=== PATIENT | male | born 1975 | race Caucasian/White ===

== ENCOUNTER → 2017-11-17 | Outpatient (CLI) | payer BC ==
--- NOTE | 2017-11-18 09:28 | US ---
EXAMINATION TYPE: US kidneys/renal and bladder DATE OF EXAM: 11/17/2017 COMPARISON: 05/21/2017 CLINICAL HISTORY: N28.89 Disorder of the kidney and ureter. History of renal cyst EXAM MEASUREMENTS: Right Kidney: 9.1 x 4.3 x 4.4 cm Left Kidney: 10.1 x 5.2 x 4.5 cm Technical limitations due to large amount of overlying bowel content Right Kidney: no evidence of hydronephrosis or mass Left Kidney: cystic area lower pole = 1.1 x 1.0 x 1.2cm, cystic area (unable to clear out low level e choes) lower anterior = 0.9 x 0.8 x 1.2cm Bladder: appears wnl Bilateral Jets seen: yes There is no evidence for hydronephrosis at this point in time. No nephrolithiasis is seen. No diane s are identified. The urinary bladder is anechoic. Bilateral ureteral jets are seen. IMPRESSION: 1. No interval growth of the left lower pole complex cystic lesion in comparison to the exam of 2014. Therefore this is highly favored to be benign. 2. Additional 1.2 cm left lower pole renal lesion is demonstrated to the cystic on the exam of 017 and now appears hypoechoic. This may represent a component of internal hemorrhage or proteinaceou s debris that has occurred in the interim.
== END | disposition home or self-care (01) ==
LOC: RADUSWWP 16:26
PROVIDERS: ATTEND Family Medicine
DX: N28.1 Cyst of kidney, acquired (principal)
CPT/HCPCS: 76770

== ENCOUNTER 2018-11-04 18:38 | Emergency (ER) | payer BC ==
[2018-11-04 18:42] VITALS: RESP 18
--- NOTE | 2018-11-04 18:46 | ED ---
Abdominal Pain HPI - General Chief Complaint: Abdominal Pain Stated Complaint: lower right abdominal pain Time Seen by Provider: 11/04/18 18:42 Source: patient Mode of arrival: ambulatory Limitations: no limitations - History of Present Illness Initial Comments: 43-year-old male presenting today for chief complaint of right lower abdominal pain. Patient has history of IBS and cyclic vomiting. Patient states he has had issues with either diagnoses within the past 3 years. Patient states that about 3 days ago he had episode of vomiting as well as diarrhea. He denies any additional episodes since. Patient states that he has had significant tender in his right lower quadrant that increases with palpation. He states he did have a previous hernia in this area. He states it has been repaired. Patient denies any nausea chest pain dyspnea disposition melena hematochezia. Patient states the pain increases walking or movements. Patient states he does have pain radiating from the back towards the right-sided abdomen and has had previous kidney stones. Patient denies dysuria urgency frequency or hematuria. Denies testicular pain. Patient appears well upon arrival. Vital signs within acceptable limits. No signs of acute distress. - Related Data Home Medications Medication Instructions Recorded Confirmed Albuterol Inhaler [Ventolin Hfa 2 puff INHALATION RT-Q4H PRN 05/21/17 11/04/18 Inhaler] Ondansetron [Zofran ODT] 8 mg PO Q8H PRN 05/21/17 11/04/18 Phenobarb/Hyoscy/Atropine/Scop 16.2 mg PO TID 05/21/17 11/04/18 [] Anastrozole [Arimidex] 1 mg PO MOWEFR 11/04/18 11/04/18 HYDROcodone/APAP 10-325MG [[place] 1 tab PO Q6HR PRN 11/04/18 11/04/18 10-325] Allergies Allergy/AdvReac Type Severity Reaction Status Date / Time No Known Allergies Allergy Verified 11/04/18 19:00 Review of Systems ROS Statement: Those systems with pertinent positive or pertinent negative responses have been documented in the HPI. ROS Other: All systems not noted in ROS Statement are negative. Past Medical History Past Medical History: Fibromyalgia Additional Past Medical History / Comment(s): IBS, vomiting syndrome, chronic pain, DJD, arthritis. History of Any Multi-Drug Resistant Organisms: None Reported Past Surgical History: Hernia Repair Past Psychological History: No Psychological Hx Reported Smoking Status: Current every day smoker Past Alcohol Use History: None Reported Past Drug Use History: Marijuana General Exam - General Exam Comments Initial Comments: General: The patient is awake and alert, in no distress, and does not appear acutely ill. Eye: +3 mm pupils are equal, round and reactive to light, extra-ocular movements are intact. No nystagmus. There is normal conjunctiva bilaterally. No signs of icterus. Ears, nose, mouth and throat: There are moist mucous membranes and no oral lesions. Neck: The neck is supple, there is no tenderness or JVD. Cardiovascular: There is a regular rate and rhythm. No murmur, rub or gallop is appreciated. Respiratory: Lungs are clear to auscultation, respirations are non-labored, breath sounds are equal. No wheezes, stridor, rales, or rhonchi. Gastrointestinal: Soft, non-distended, abdomen without masses or organomegaly noted. Abdomen is tender to the right lower quadrant no rigidity. There is no rebound or guarding present. No CVA tenderness. Bowel sounds are unremarkable. Musculoskeletal: Normal ROM, no tenderness. Strength 5/5. Sensation intact. Radial pulses equal bilaterally 2+. Neurological: A&O x 3. CN II-XII intact, There are no obvious motor or sensory deficits. Coordination appears grossly intact. Speech is normal. Skin: Skin is warm and dry and no rashes or lesions are noted. Psychiatric: Cooperative, appropriate mood & affect, normal judgment. Limitations: no limitations Course Vital Signs 11/04/18 11/04/18 18:40 20:15 Temperature 97.4 F L 97.9 F Pulse Rate 90 86 Respiratory 18 18 Rate Blood Pressure 119/78 102/74 O2 Sat by Pulse 100 97 Oximetry Medical Decision Making - Medical Decision Making Well-appearing 43-year-old male presents today for chief complaint of right lower abdominal pain. No hernia present on examination. No masses. Patient does have moderate tenderness in the right lower quadrant. No rigidity, guarding or peritoneal irritation signs. CT was negative for acute process. Laboratory studies unremarkable. Urinalysis unremarkable. I did discuss these findings with patient, patient states he has had improvement of pain. Patient has had recent vomiting diarrhea most likely viral in nature. Differential diagnosis of right lower quadrant pain includes underlying mesenteric adenitis. Return parameters were discussed at length with patient who verbalized understanding. pt provided pain medication in the ER. Patient appears well, comfortable. Pt will be discharged with outpatient primary care f/u in 2-3 days. Patient is agreeable plan as well as R return parameters SINCE were answered to the best of my ability. I did discuss the case the time provider Dr. Leon who is agreeable patient plan of care as well as discharged today. - Lab Data Result diagrams: 11/04/18 19:10 11/04/18 19:10 Lab Results 11/04/18 11/04/18 11/04/18 Range/Units 19:10 19:10 19:10 WBC 11.7 H (3.8-10.6) k/uL RBC 4.78 (4.30-5.90) m/uL Hgb 15.4 (13.0-17.5) gm/dL Hct 47.5 (39.0-53.0) % MCV 99.4 (80.0-100.0) fL MCH 32.2 (25.0-35.0) pg MCHC 32.4 (31.0-37.0) g/dL RDW 12.1 (11.5-15.5) % Plt Count 312 (150-450) k/uL Neutrophils % 71 % Lymphocytes % 21 % Monocytes % 5 % Eosinophils % 1 % Basophils % 1 % Neutrophils # 8.3 H (1.3-7.7) k/uL Lymphocytes # 2.4 (1.0-4.8) k/uL Monocytes # 0.6 (0-1.0) k/uL Eosinophils # 0.1 (0-0.7) k/uL Basophils # 0.1 (0-0.2) k/uL Sodium 137 (137-145) mmol/L Potassium 4.4 (3.5-5.1) mmol/L Chloride 99 (98-107) mmol/L Carbon Dioxide 30 (22-30) mmol/L Anion Gap 8 mmol/L BUN 17 (9-20) mg/dL Creatinine 0.84 (0.66-1.25) mg/dL Est GFR (CKD-EPI)AfAm >90 (>60 ml/min/1.73 sqM) Est GFR (CKD-EPI)NonAf >90 (>60 ml/min/1.73 sqM) Glucose 91 (74-99) mg/dL Calcium 9.6 (8.4-10.2) mg/dL Total Bilirubin 0.7 (0.2-1.3) mg/dL AST 17 (17-59) U/L ALT 20 L (21-72) U/L Alkaline Phosphatase 85 (38-126) U/L Total Protein 7.2 (6.3-8.2) g/dL Albumin 4.4 (3.5-5.0) g/dL Lipase 64 (23-300) U/L Urine Color Yellow Urine Appearance Clear (Clear) Urine pH 6.0 (5.0-8.0) Ur Specific [place] 1.030 (1.001-1.035) Urine Protein 1+ H (Negative) Urine Glucose (UA) Negative (Negative) Urine Ketones Negative (Negative) Urine Blood Negative (Negative) Urine Nitrite Negative (Negative) Urine Bilirubin Negative (Negative) Urine Urobilinogen 3.0 (<2.0) mg/dL Ur Leukocyte Esterase Trace H (Negative) Urine RBC 3 (0-5) /hpf Urine WBC 4 (0-5) /hpf Amorphous Sediment Rare H (None) /hpf Urine Bacteria Rare H (None) /hpf Urine Mucus Moderate H (None) /hpf Disposition Clinical Impression: Abdominal pain Disposition: HOME SELF-CARE Condition: Good Instructions (If sedation given, give patient instructions): Abdominal Pain (ED) Additional Instructions: Please use medication as discussed. Please follow-up with family doctor in the next 2 days. Please return to emergency room if the symptoms increase or worsen or for any other concerns. Is patient prescribed a controlled substance at d/c from ED?: No Referrals: Braden Flores MD [Primary Care Provider] - 1-2 days Time of Disposition: 19:59
[2018-11-04 19:41] LABS: Basophils # (A) 0.1 k/uL (0-0.2); Basophils % (A) 1 %; Eosinophils # (A) 0.1 k/uL (0-0.7); Eosinophils % (A) 1 %; HCT 47.5 % (39.0-53.0); HGB 15.4 gm/dL (13.0-17.5); Lymphocytes # (A) 2.4 k/uL (1.0-4.8); Lymphocytes % (A) 21 %; MCH 32.2 pg (25.0-35.0); MCHC 32.4 g/dL (31.0-37.0); MCV 99.4 fL (80.0-100.0); Mean Platelet Volume 6.6; Monocytes # (A) 0.6 k/uL (0-1.0); Monocytes % (A) 5 %; Neutrophils # (A) 8.3 k/uL (1.3-7.7); Neutrophils % (A) 71 %; Platelet Count 312 k/uL (150-450); RBC 4.78 m/uL (4.30-5.90); RDW 12.1 % (11.5-15.5); WBC 11.7 k/uL (3.8-10.6)
--- NOTE | 2018-11-04 19:48 | CT ---
EXAMINATION TYPE: CT abdomen pelvis w con DATE OF EXAM: 11/04/2018 COMPARISON: 05/21/2017 HISTORY: RLQ pain, hx of IBS CT DLP: 737.1 mGycm CONTRAST: CT scan of the abdomen and pelvis is performed without Oral Contrast and with IV Contrast, patient in jected with 100 mL of Isovue 300. FINDINGS: LUNG BASES-: No visible nodule. No infiltrate. LIVER/GB: No calcified gallstones. No space occupying hepatic lesion. Biliary tree is of normal ca liber. PANCREAS: No inflammation. No distinct mass. SPLEEN: No splenic enlargement. No lesion seen. ADRENALS: No nodule. No thickening. KIDNEYS/BLADDER: No hydronephrosis. No nephrolithiasis. Subcentimeter nonspecific cystic lesion upp er pole left kidney. Additional smaller cyst lower pole left kidney. Urinary bladder grossly unremark able. BOWEL: Normal appendix. Normal bowel caliber. Small bowel wall thickening may reflect enteritis. Cor relate clinically. No evidence for free air or abscess. GENITAL ORGANS: No gross abnormality. LYMPH NODES: No greater than 1cm abdominal or pelvic lymph nodes are appreciated. AORTA: No significant abnormality. OSSEOUS STRUCTURES: No significant abnormality is seen. OTHER: No significant additional abnormality is seen. IMPRESSION: 1. Small bowel wall thickening may reflect enteritis. Correlate clinically.
[2018-11-04 19:51] LABS: Albumin 4.4 g/dL (3.5-5.0); Glucose 91 mg/dL (74-99); Total Protein 7.2 g/dL (6.3-8.2)
[2018-11-04 19:52] LABS: ALT 20 U/L (21-72); AST 17 U/L (17-59); Alkaline Phosphatase 85 U/L (38-126); Anion Gap 8 mmol/L; Blood Urea Nitrogen 17 mg/dL (9-20); Calcium 9.6 mg/dL (8.4-10.2); Carbon Dioxide 30 mmol/L (22-30); Chloride 99 mmol/L (98-107); Lipase 64 U/L (23-300); Potassium 4.4 mmol/L (3.5-5.1); Sodium 137 mmol/L (137-145); Total Bilirubin 0.7 mg/dL (0.2-1.3)
[2018-11-04 19:57] LABS: Amorphous Sediment,Urine Rare /hpf; Appearance,Urine Clear (Clear); Bacteria,Urine Rare /hpf; Bilirubin,Urine Negative (Negative); Blood,Urine Negative (Negative); Color,Urine Yellow; Glucose,Urine (UA) Negative (Negative); Ketones,Urine Negative (Negative); Leukocyte Esterase,Urine Trace (Negative); Mucus,Urine Moderate /hpf; Nitrite,Urine Negative (Negative); Protein,Urine 1+ (Negative); RBC,Urine 3 /hpf (0-5); WBC,Urine 4 /hpf (0-5)
[2018-11-04] MEDS ORDERED: Acetaminophen-Codeine 300-30mg TAB PO STA (20:07)
[2018-11-04 20:17] VITALS: BP 102/74; PULSE 86; TEMP 97.9
== END 2018-11-04 20:17 | disposition home or self-care (01) ==
LOC: EC 18:38
DX: R10.31 Right lower quadrant pain (principal); M54.9 Dorsalgia, unspecified; M19.90 Unspecified osteoarthritis, unspecified site; F17.200 Nicotine dependence, unspecified, uncomplicated; Z79.891 Long term (current) use of opiate analgesic; Z79.899 Other long term (current) drug therapy; Z87.19 Personal history of other diseases of the digestive system; Z87.442 Personal history of urinary calculi; Z98.890 Other specified postprocedural states
CPT/HCPCS: 36415; 80053; 83690; 85025; 81001; 74177; 99284; Q9967

== ENCOUNTER → 2018-11-30 | Outpatient (CLI) | payer BC ==
--- NOTE | 2018-11-30 09:14 | MR ---
EXAMINATION TYPE: MR lumbar spine wo con DATE OF EXAM: 11/30/2018 COMPARISON: MRI lumbar spine May 13, 2011. CT abdomen and pelvis November 04, 2018. HISTORY: Low back pain. Pain for years increasing in severity over last 6 weeks going into right butt ocks and calf per patient. TECHNIQUE: Multiplanar, multisequence imaging of the lumbar spine is performed without IV contrast. FINDINGS: Sagittal images of the lumbar spine show vertebral body heights and alignment to appear sat isfactory. Multilevel disc desiccation is seen but disc space heights are fairly well-maintained. No large posterior disc herniations are present on sagittal images. The conus medullaris is normal in po sition and signal ending mid L1 level. The bone marrow signal intensity is within normal limits. Axial images show the T12-L1 and L1-L2 levels to remain within normal limits. Axial images at L2-L3 level show mild broad disc bulge minimally effacing anterior thecal sac, bilate ral neural foramina are patent. Axial images at the L3-L4 level are felt to remain within normal limits. Axial images at the L4-L5 level show central disc protrusion with increased posterior signal consiste nt with annular tear redemonstrated. There is mild facet degenerative change seen bilaterally. There is minimal effacement of the anterior thecal sac. Bilateral neural foramina are patent. Axial images at the L5-S1 level show mild facet degenerative changes bilaterally. There is tiny left paracentral disc protrusion axial image 3 but no significant spinal canal effacement. Bilateral neura l foramina are patent. No suspicious incidental retroperitoneal findings. IMPRESSION: Some multilevel mild degenerative changes L2-L3, L4-L5, and L5-S1 levels as detailed abov e. No significant progression from 2011 MRI. No suspicious new finding seen to account for patient's right-sided radiculopathy type symptoms.
== END | disposition home or self-care (01) ==
LOC: RADMRIMAIN 08:26
PROVIDERS: ATTEND Physical Medicine & Rehabilitation
DX: M51.27 Other intervertebral disc displacement, lumbosacral region (principal); M51.26 Other intervertebral disc displacement, lumbar region; M47.816 Spondylosis without myelopathy or radiculopathy, lumbar region; M47.817 Spondylosis without myelopathy or radiculopathy, lumbosacral region
CPT/HCPCS: 72148

== ENCOUNTER → 2019-01-05 | Outpatient (CLI) | payer BC ==
[2019-01-05 13:44] VITALS: BP 105/72; PULSE 102; RESP 16
--- NOTE | 2019-01-05 14:24 | P.PAINCN ---
History of Present Illness - Reason for Consult Consult date: 01/05/19 - History of Present Illness This is 43 years old male with a chronic history of severe low back pain, started almost 15 years ago, he denies any initiating event, and he was treated with the interventional pain therapy and he had radiofrequency ablation of the medial branch done 10 years ago, later on he was on pain medication, and he was doing fairly well until recently when he started having severe low back pain with radiation to the right lower extremity, associated with numbness and tingling sensation, patient denies any initiating event, he had no history of trauma no history of heavy lifting, he had no history of falling, he reported that the intensity of the pain 8/10 and increases with any activity walking and bending and leaning forward all these factors aggravate his pain, he denies any fever or night sweats, he denies any change in the bowel movement or urination, and he reported that the intensity of the pain interferes with her quality of life, is currently on MSIR 30 mg every 6 hours he denies any side effect of the medication and he reports he gets some benefit from the pain medication. Past Medical History Past Medical History: Asthma, Fibromyalgia, GERD/Reflux, Osteoarthritis (OA) Additional Past Medical History / Comment(s): IBS, CVS(vomiting syndrome), DJD, migraines, hiatal hernia, hx "high estrogen" History of Any Multi-Drug Resistant Organisms: None Reported Past Surgical History: Hernia Repair Additional Past Surgical History / Comment(s): urinary stent for kidney stone/later removed Past Anesthesia/Blood Transfusion Reactions: No Reported Reaction Smoking Status: Current every day smoker - Past Family History Mother Family Medical History: No Reported History Medications and Allergies Home Medications Medication Instructions Recorded Confirmed Type Albuterol Inhaler [Ventolin Hfa 2 puff INHALATION Q4HR PRN 05/21/17 01/03/19 History Inhaler] Ondansetron [Zofran ODT] 8 mg PO Q8H PRN 05/21/17 01/03/19 History Phenobarb/Hyoscy/Atropine/Scop 16.2 mg PO TID PRN 05/21/17 01/03/19 History [] Anastrozole [Arimidex] 1 mg PO MOWEFR 11/04/18 01/03/19 History Morphine Sulfate Ir [MSIR] 30 mg PO QID 01/03/19 01/05/19 History Allergies Allergy/AdvReac Type Severity Reaction Status Date / Time No Known Allergies Allergy Verified 01/03/19 15:09 Physical Exam Vitals: Vital Signs Pulse Resp BP 01/05/19 13:39 102 H 16 105/72 Social history : not smoker , NO ETOH . Family history : Review of Systems : - Constitutional : no chills , no fever , no night sweats , - Ears : no ear discharge , no change in hearing -Nose, Mouth ,Throat ; no bleeding gums, no sore throat , no epista xis , -Cardiovascular : Denies chest pain, , no orthopnea , no palpitation -Respiratory : Denies cough , no dyspnea , no hemoptysis -Gastrointestinal : no change in bowel habits , no coffee-ground emesis . -Genitourinary : No hematuria , no discharge , no incontinence, -Musculoskeletal : No gait dysfunction , report low back pain with radiation to the right lower extremity with numbness and tingling sensation , - Neurological : no ataxia , no tremor , no sezure , -Psychatric : no suicidal ideation no hallucination - Endocrine : no cold intolerence , no polyuria , no polydypsia , -Hematologic : no easy bleeding , no easy brusing , -Allergic / immm : no angioedema , no wheezing ,no allergic rhinitis -Integumentary : no brttle nails , no change hair / nails , no foot/leg ulcers . Physical Examinations : -Constitutional : Cooperative , not in acute distress . -HEENT : nech ; supple , no Lymphadenopathy , no Thyromegaly , :eyes : no icterus, no photophobia . ENT : normal oropharynx , no Thrush - Respiratory : Chest clear to auscultations Bilaterally , no wheezing . - Cardiovascular : regular rate and rhythem , S1 , S2 , no S3 , no S4. - Gastrointestina l: abdomen soft no tenderness , no organomegally . - Genitourinary : Defferred . -Integumentary : No cellulitis , no ulcers , normal skin turgor , no cyanotic . - neurologic : Cranial nerve II to XII intact , no focal neurological deffecit -psychatric : alert , oriented X 3 , appropriate affect , intact judgment and insight . -Lymphatic : no Lymphadenopathy. - musculoskeltal: Antalgic gait . Lumber spine moter stegnth lower extremities ,thigh and legs 5/5 Right side , 5/5 Left side deep tendon reflexes : normal Knee Jerk , normal ankle Jerk Dysesthesia on the right lower extremity positive lumber facet Loading Test Range of motion of the lumbar spine Flexion 30 degrees, extension 10 degrees strait leg raising test , positive at 30 degree on the right side and is negative on the left side Fabere test positive RT and negative LT . Severe tenderness over the sacroiliac joint on the right side, and on the left side Results Comments: MRI of the lumbar spine done at [facility] L2-3 disc bulging at L4 5 disc protrusion with annular tear and facet degeneration, L5-S1 facet de generation Assessment and Plan Plan: Assessment and plan= lumbar radiculopathy. Lumbar spondylosis with lumbar facet arthropathy without myelopathy. Patient could benefit from right-sided transforaminal epidural steroid injection at L4-L5/L5-S1 under fluoroscopy guidance, Procedure risk and benefits and alternatives discussed with the patient he agreed with proceeding Time with Patient: Greater than 30 PQRS Measure Charge Sheet Measure #130: Documentation of Current Meds in Medical Chart: Patient's medications documented in chart Measure #226: Tobacco Use: Screen & Cessation Intervention: Pt not a tobacco user Measure #111: Pneumonia Vaccination: Pneumococcal vaccine NOT administered or previously given Measure #47: Advance Care Plan: Advance care planning discussed & documented, pt chose/unable to give Measure #412: Opioid Treatment Agreement: No documentation of signed opioid treatment agreement Measure #408: Opioid Therapy Follow-up Evaluation: Patient had NO f/u eval minimum every 3 months during opioid therapy Measure #317: Preventitive Care & Scrn High Bld Press & F/U: Normal blood pressure, f/u not required Measure #128: Body Mass Index (BMI) Screening & Follow-up: BMI documented within normal parameters Measure #131: Pain Assessment & Follow-up: Pain positive & plan documented, Follow-up scheduled Measure #431: Unhealthy Alcohol Use Preventative Care & Scrn: Patient not identified as an unhealthy alcohol user PQRS Narrative: Smoking Status Current every day smoker Blood Pressure 105/72 Pain Intensity [Right Calf] 8 Pain Intensity [Right Buttock] 8 Scale Used Numeric (1 - 10) Hx Alcohol Use (MH) Yes Home Medications: Ambulatory Orders Albuterol Inhaler [Ventolin Hfa Inhaler] 2 puff INHALATION Q4HR PRN 05/21/17 Ondansetron [Zofran ODT] 8 mg PO Q8H PRN 05/21/17 Phenobarb/Hyoscy/Atropine/Scop [] 16.2 mg PO TID PRN 05/21/17 Anastrozole [Arimidex] 1 mg PO MOWEFR 11/04/18 Morphine Sulfate Ir [MSIR] 30 mg PO QID 01/03/19
== END | disposition home or self-care (01) ==
LOC: PNWHC3 13:11
PROVIDERS: ATTEND Specialist
DX: M47.26 Other spondylosis with radiculopathy, lumbar region (principal); M46.96 Unspecified inflammatory spondylopathy, lumbar region; M19.90 Unspecified osteoarthritis, unspecified site; G43.909 Migraine, unspecified, not intractable, without status migrainosus; F17.200 Nicotine dependence, unspecified, uncomplicated; Z79.890 Hormone replacement therapy; Z79.891 Long term (current) use of opiate analgesic
CPT/HCPCS: 99211

== ENCOUNTER 2019-01-18 09:30 | Day surgery (SDC) | payer BC ==
[2019-01-17 12:07] VITALS: BMI 23.6
[~2019-01-18 09:30] MED LIST: LACTATED RINGERS 1,000 ML IV SCH
[2019-01-18 09:56] VITALS: TEMP 97.3
[2019-01-18] MEDS ORDERED: LIDOCAINE 1% 20 ML VIAL (10MG/ML) FOR IV START INTRADERMA ONE (09:59)
[2019-01-18] MEDS ORDERED: IV FLUID CONTINUATION 1,000 ML IV ONE (11:05)
[2019-01-18 11:22] VITALS: BP 115/67; PULSE 67; RESP 18
--- NOTE | 2019-01-18 11:26 | FL ---
EXAMINATION TYPE: FL guided pain mgmt statistic DATE OF EXAM: 01/18/2019 COMPARISON: NONE HISTORY: Back pain TECHNIQUE: Fluoroscopy. FINDINGS: Fluoroscopic guidance was provided during procedure performed by Dr. Tracy. A total of 7 se conds of fluoroscopic time was utilized during the procedure and 4 spot images was acquired demonstra ting localization of the lumbar spine. IMPRESSION: As Above.
--- NOTE | 2019-01-18 16:39 | P.PCN ---
Date of Procedure: 01/18/19 Procedure(s) Performed: DESCRIPTION OF PROCEDURE(S): PREOPERATIVE DIAGNOSIS: Lumbar discogenic pain and radiculopathy POSTOPERATIVE DIAGNOSIS: Same PROCEDURE 1. Transforaminal epidural steroid injection under fluoroscopic guidance right L4-L5 level 2. Lumbar epidurogram ANESTHESIA: Local with 1% lidocaine 3 ml ; IV sedation with Versed and fentanyl PROCEDURE INDICATION: The patient with low back pain and radiculopathy symptoms unresponsive to conservative treatment. PROCEDURE DESCRIPTION / TECHNIQUE: The patient was seen and identified in the preoperative area. Risks, benefits, complications, and alternatives were discussed with the patient. The patient agreed to proceed with the procedure and signed the consent. IV was started, and vital signs were stable. Patient was taken to the OR and time out was completed. The patient was placed in the prone position on procedure table and a pillow was placed under the abdomen to reduce lumbar lordosis. The lumbosacral area was prepped and draped in the usual sterile fashion. Vital signs were closely monitored during the procedure. Conscious sedation was used. Using oblique fluoroscopy, the chin of the ``Frederic dog and the skin and deeper tissues just below was localized with 1% lidocaine. Subsequently, a 22- gauge 3.5-inch spinal needle was advanced under a tunneled view fluoroscopic guidance just underneath the chin of the ``Frederic dog . Under lateral fluoroscopy, the needle was then advanced to the posterior border of the foramen. After negative aspiration of CSF and blood and with no paresthesias, 1 mL of Omnipaque-240 contrast dye was injected under live fluoroscopy and there was no evidence of intravascular injection. The injectate solution consisting of 1 mL of Depo-Medrol 10 mg per mL and one mL of 1% lidocaine was then delivered. The needle was withdrawn intact. At the end of the procedure, skin was cleansed, and bandages were applied. COMPLICATIONS: None COMMENTS: None DISPOSITION / PLANS: The patient was placed in a supine position and transferred to the recovery area in a stable condition for observation. There was no evidence of lower extremity motor or sensory deficit after the procedure. Patient was discharged from the recovery room after meeting discharge criteria. Home discharge instructions were given to the patient by the staff. The patient will follow up in clinic in 4 weeks.
== END 2019-01-18 11:35 | disposition home or self-care (01) ==
LOC: ORPAIN 09:30
PROVIDERS: ATTEND Anesthesiology
DX: M54.16 Radiculopathy, lumbar region (principal); M54.5 Low back pain
CPT/HCPCS: 64483; J2250; J1100; J3010; Q9966; 99152

== ENCOUNTER → 2019-02-08 | Outpatient (CLI) | payer BC ==
[2019-02-08 13:50] VITALS: RESP 16
--- NOTE | 2019-02-08 14:05 | P.PN ---
Subjective Progress Note Date: 02/08/19 This is a 43-year-old gentleman with history of lower back pain with radiation to the right lower extremity. The patient had transforaminal epidural steroid injection at the L4 5 level on the right side which gave him significant relief of pain. The patient denies any pain in his right leg now and his lower back pain is only 2 out of 10. The patient does take MS Contin 30 mg 4 times a day by Dr. Ling for neck pain mostly. The patient is going to wean himself down on morphine gradually over time. By physical exam he is alert oriented 3 in no apparent distress. Neuro exam of the lower extremities showed normal and symmetrical muscle strength and deep tendon reflexes. The patient will be seen on an as-needed basis. I told him with the first sign of pain coming back in his lower back and radiating to his right leg he should give us a call and then we'll plan on repeating the transforaminal injection on the lumbar spine at the L4 5 level on the right side. Objective - Vital Signs Vital signs: Vital Signs Temp Pulse Resp 16 02/08/19 13:54 BP Pulse Ox 95 02/08/19 13:47 Intake & Output 02/07/19 02/08/19 02/08/19 18:59 06:59 18:59 Weight 72.575 kg
== END | disposition home or self-care (01) ==
LOC: PNWHC3 12:48
PROVIDERS: ATTEND Anesthesiology
DX: M54.5 Low back pain (principal)
CPT/HCPCS: 99211

== ENCOUNTER → 2019-04-05 | Day surgery (SDC) | payer BC ==
[2019-03-31 18:03] VITALS: BMI 22.9
[~2019-04-05] MED LIST changes: +IV FLUID CONTINUATION 1,000 ML IV ONE; +LACTATED RINGERS 1,000 ML IV ONE
[2019-04-05 08:19] VITALS: RESP 18; TEMP 97.8
--- NOTE | 2019-04-05 09:02 | FL ---
Fluoroscopy INDICATION: Pain FINDINGS: Fluoroscopy time: 7 seconds. Images obtained: 5. IMPRESSIONS: 1. Documentation of fluoroscopy.
[2019-04-05 09:23] VITALS: BP 106/71; PULSE 77
--- NOTE | 2019-04-05 09:37 | P.PCN ---
Date of Procedure: 04/05/19 Procedure(s) Performed: PREOPERATIVE DIAGNOSIS: Lumbar radiculopathy POSTOPERATIVE DIAGNOSIS: Lumbar radiculopathy Attending physician: Sally Tracy M.D. PROCEDURE 1. Transforaminal epidural steroid injection under fluoroscopic guidance L4-5 level, right side 2. Lumbar epidurogram ANESTHESIA: Local with 1% lidocaine 3 ml ; IV sedation with Versed and fentanyl , sedation time 10 minutes PROCEDURE INDICATION: The patient with low back pain and radiculopathy symptoms unresponsive to conservative treatment. Fluoroscopy was used for the procedure and fluoroscopic images were saved to the radiology portion of patient's chart. PROCEDURE DESCRIPTION / TECHNIQUE: The patient was seen and identified in the preoperative area. Risks, benefits, complications, and alternatives were discussed with the patient. The patient agreed to proceed with the procedure and signed the consent. IV was started, and vital signs were stable. Patient was taken to the OR and time out was completed. The patient was placed in the prone position on procedure table and a pillow was placed under the abdomen to reduce lumbar lordosis. The lumbosacral area was prepped and draped in the usual sterile fashion. Vital signs were closely monitored during the procedure. Conscious sedation was used. Using oblique fluoroscopy, the chin of the ``Frederic dog and the skin and deeper tissues just below was localized with 1% lidocaine. Subsequently, a 22- gauge 3.5-inch spinal needle was advanced under a tunneled view fluoroscopic guidance just underneath the chin of the ``Frederic dog . Under lateral fluoroscopy, the needle was then advanced to the posterior border of the foramen. After negative aspiration of CSF and blood and with no paresthesias, 1 mL of Isovue-200 contrast dye was injected under live fluoroscopy and there was no evidence of intravascular injection. The injectate solution consisting of 10 mg of dexamethasone with 1 mL of 1% lidocaine was then delivered. The needle was withdrawn intact. At the end of the procedure, skin was cleansed, and bandages were applied. COMPLICATIONS: None COMMENTS: DISPOSITION / PLANS: The patient was placed in a supine position and transferred to the recovery area in a stable condition for observation. There was no evidence of lower extremity motor or sensory deficit after the procedure. Patient was discharged from the recovery room after meeting discharge criteria. Home discharge instructions were given to the patient by the staff. The patient will follow up in clinic in 2-4 weeks.
== END | disposition home or self-care (01) ==
LOC: ORPAIN 08:06
PROVIDERS: ATTEND Anesthesiology
DX: M54.16 Radiculopathy, lumbar region (principal)
CPT/HCPCS: 64483; J2250; J1100; J3010; Q9966; 99152

== ENCOUNTER → 2019-04-19 | Outpatient (CLI) | payer BC ==
[2019-04-19 13:14] VITALS: BP 119/70; PULSE 101; RESP 18
--- NOTE | 2019-04-19 21:13 | P.PAINPG ---
Subjective Progress Note Date: 04/19/19 This is a follow-up visit for this 43 years old male with a chronic history of severe low back pain with rotation to the right lower extremity associated with severe numbness and tingling sensation, he is diagnosed with lumbar radiculopathy and we done transforaminal epidural steroid injections at the L4 5 level x2 , patient reported that he has 2 months of pain relief after the first injection didn't the second injection he had only one day of pain relief, his symptoms increase with any activity and he gets some relief from the TENS unit, he reported that his symptoms interfering with his quality of life, he feels that he had some weakness in his right lower extremity, he denies any change in her bowel movements or urination he denies any fever or night sweats, he continued to use [place] 10/325 every 6 hours when necessary and he is getting prescription refill from his primary care. Objective - Vital Signs Vital signs: Vital Signs Temp Pulse 101 H 04/19/19 13:06 Resp 18 04/19/19 13:06 BP 119/70 04/19/19 13:06 Pulse Ox 94 L 04/19/19 13:06 - Exam Physical Examinations : -Constitutiona : Cooperative , not in acute distress . -HEENT : nech : supple , no Lymphadenopathy , normal thyroid size . eyes : no ptosis , no icterus, no photophobia - neurologic : Cranial nerve II to XII intact , no focal neurological deffecit . -psychatric : alert , oriented X 3 , appropriate affect , intact judgment and insight . -Lymphatic : no Lymphadenopathy . - musculoskeltal : Lumber spine moter stegnth lower extremities ,thigh and legs 3-4/5 Right side , 5/5 Left side lumber facet Loading Test = negative Range of motion of the lumbar spine Flexion 30 degrees, extension 10 degrees strait leg raising test , positive at 45 degree on the right side and negative on the left side Fabere test positive RT and positive LT . Sever tenderness over the Sacroiliac joint on the Right side Assessment and Plan Plan: Assessment and plan= lumbar radiculopathy. he could benefit from right-sided transforaminal epidural steroid injection at L4 5 and L5-S1 under fluoroscopy guidance Patient could benefit from Lyrica 25 mg 3 times a day (1 prescription only presentation in the future prescription from his primary care) Shingling referred to see Dr mahoney for evaluation for possible surgical interventions if he continued to have severe pain Time with Patient: Less than 30 PQRS Measure Charge Sheet Measure #130: Documentation of Current Meds in Medical Chart: Patient's medications documented in chart Measure #226: Tobacco Use: Screen & Cessation Intervention: Pt screened for tobacco use AND intervention given Measure #111: Pneumonia Vaccination: Pneumococcal vaccine NOT administered or previously given Measure #47: Advance Care Plan: Advance care planning discussed & documented, pt chose/unable to give Measure #412: Opioid Treatment Agreement: No documentation of signed opioid treatment agreement Measure #408: Opioid Therapy Follow-up Evaluation: Patient had f/u eval minimum every 3 months during opioid therapy Measure #317: Preventitive Care & Scrn High Bld Press & F/U: Normal blood pressure, f/u not required Measure #128: Body Mass Index (BMI) Screening & Follow-up: BMI documented within normal parameters Measure #131: Pain Assessment & Follow-up: Pain positive & plan documented, Follow-up scheduled Measure #431: Unhealthy Alcohol Use Preventative Care & Scrn: Patient identified as unhealthy alcohol user; counseling given PQRS Narrative: Smoking Status Current every day smoker Blood Pressure 119/70 Pain Intensity [Right Buttock] 6 Pain Intensity [Right Leg] 8 Scale Used Numeric (1 - 10) Hx Alcohol Use (MH) Yes Home Medications: Ambulatory Orders Albuterol Inhaler [Ventolin Hfa Inhaler] 2 puff INHALATION Q4HR PRN 05/21/17 Ondansetron [Zofran ODT] 8 mg PO Q8H PRN 05/21/17 Phenobarb/Hyoscy/Atropine/Scop [] 16.2 mg PO TID PRN 05/21/17 Anastrozole [Arimidex] 1 mg PO MOWEFR 11/04/18 HYDROcodone/APAP 10-325MG [[place]ington 10-325] 1 tab PO QID PRN 03/31/19 Testosterone Enanthate [Xyosted] 50 mg SQ Q14D 03/31/19 Controlled Substance Measures - Controlled Substance Measures Is patient prescribed a controlled substance at discharge?: No
== END ==
LOC: PNWHC3 12:54
PROVIDERS: ATTEND Specialist
DX: M54.16 Radiculopathy, lumbar region (principal); F17.200 Nicotine dependence, unspecified, uncomplicated; Z79.899 Other long term (current) drug therapy; Z79.891 Long term (current) use of opiate analgesic; Z79.811 Long term (current) use of aromatase inhibitors
CPT/HCPCS: 99211

== ENCOUNTER → 2024-05-25 | Outpatient (CLI) | payer BC ==
--- NOTE | 2024-05-25 14:58 | CT ---
EXAMINATION TYPE: CT brain cspine wo con CT DLP: 1600.1 mGycm, Automated exposure control for dose reduction was used. DATE OF EXAM: 05/25/2024 2:33 PM COMPARISON: None.. CLINICAL INDICATION:Male, 48 years old with history of S06.0X0A CONCUSSION WITHOUT S19.9XXA INJURY OF NECK; Fall x2days ago. LOC. Neck pain. TECHNIQUE: Brain: Multiple axial CT images of the brain were obtained without IV contrast. Cspine: Axial CT images from the skull base to the inferior aspect of T2 we obtained without intraven ous contrast. Coronal and sagittal reformatted images were also reviewed. FINDINGS: Brain: Extra-axial spaces: No abnormal extra-axial fluid collections. Ventricular system: Within normal limits Cerebral parenchyma: No acute intraparenchymal hemorrhage or mass effect. The juarez-white junction is well differentiated. Cerebellum: Unremarkable. Mass effect: No evidence of midline shift. Intracranial vasculature: unremarkable Soft tissues: Normal. Calvarium/osseous structures: No depressed skull fracture. Paranasal sinuses and mastoid air cells: Clear. Visualized orbits: Orbital contents are intact. Cervical spine: Fracture: None. Osseous structures: Degenerative disc disease most pronounced at C4-C6 with disc space narrowing, end plate sclerosis, and anterior aspect stenosis. Vertebral alignment: Within normal limits. Spinal canal/Neural Foramina: Disc bulge at C2-C3 without significant effacement of the anterior thec al sac. Disc bulge at C3-C4 with minimal effacement of the anterior thecal sac. Posterior disc osteop hyte complex at C4-C5 with minimal effacement of the anterior thecal sac. Posterior disc osteophyte c omplex at C5-C6 with mild effacement of the anterior thecal sac. Moderate left and mild right neural foraminal stenosis at C5-C6. Neck soft tissues: Prevertebral soft tissues are within normal limits. Other: The airway is patent. Biapical pleural-parenchymal scarring with paraseptal emphysematous koch ges. IMPRESSION: 1. No acute intracranial process. 2. No evidence of cervical spine fracture. 3. Mild multilevel degenerative disc disease. [facility], , 05/25/2024 2:56 PM
== END | disposition home or self-care (01) ==
LOC: RADCTMAIN 13:54
PROVIDERS: ATTEND Family Medicine
DX: S06.0X0A Concussion without loss of consciousness, initial encounter (principal); S19.9XXA Unspecified injury of neck, initial encounter; M50.31 Other cervical disc degeneration, high cervical region
CPT/HCPCS: 70450; 72125